=== PATIENT | male | born 1990 | race African-American/Black ===

== ENCOUNTER 2018-12-26 18:44 | Emergency (ER) | payer SELFPAY ==
[~2018-12-26] VITALS: Ht 170.2 cm; Wt 69.8 kg
[2018-12-26 18:57] VITALS: BP 152/88; PULSE 73; RESP 18; Ht 170.2 cm; Wt 69.8 kg
[2018-12-26] MEDS ORDERED: GUAI600T23 PO (20:18)
[2018-12-26] MEDS ORDERED: CETI10TA19 PO (20:27)
[2018-12-26] MEDS ORDERED: DEXAMETHASONE 10 MG/ML 1 ML INJ IM ONE (20:30)
--- NOTE | 2018-12-28 05:50 | ERD ---
ER Documentation Chief Complaint Chief Complaint shortness of breath x 6 days. lungs clear. "feels something stuck in my thr HPI History of Present Illness: 28-year-old male who denies a past medical history coming today with complaint of feeling like something is stuck in his throat. Patient denies cough. Patient reports postnasal drip-like activity. Patient reports nasal congestion. Patient reports he has been tilting his head back and inserting water into his nose to help with secretions/feeling that he has in his throat. At home pharmacological/nonpharmacological treatment for symptoms: Denies Denies social concerns; Denies recent foreign travel ROS All systems reviewed and are negative except as per history of present illness. Medications Home Meds Active Scripts Cetirizine Hcl* (Cetirizine Hcl*) 10 Mg Tablet, 10 MG PO DAILY for ALLERGIES/MUCUS, #30 TAB Take this medication every day to prevent mucus buildup from allergies. Prov:SUSAN BARONE NP 12/26/18 Guaifenesin (Guaifenesin) 600 Mg Tablet.sa, 600 MG PO BID for MUCUS for 7 Days, TAB Prov:SUSAN BARONE NP 12/26/18 Allergies Allergies: Coded Allergies: No Known Drug Allergies (Verified Allergy, Unknown, 12/26/18) PMhx/Soc History of Surgery: Yes (polyp removal) Anesthesia Reaction: No Hx Neurological Disorder: No Hx Respiratory Disorders: Yes (asthma during childhood) Hx Cardiac Disorders: No Hx Psychiatric Problems: No Hx Miscellaneous Medical Probl: No Hx Alcohol Use: No Hx Substance Use: Yes (weed per patient) Hx Tobacco Use: Yes Smoking Status: Former smoker FmHx Family History: No diabetes, No coronary disease Physical Exam Vitals Vital Signs Date Temp Pulse Resp B/P (MAP) Pulse Ox O2 O2 Flow FiO2 Time Delivery Rate 12/26/18 97.2 73 18 152/88 100 18:57 (109) Physical Exam Const: No acute distress Head: Atraumatic Eyes: Normal Conjunctiva ENT: Normal External Ears, nasal turbinates swollen. Postnasal drip drainage noted. Neck: Full range of motion. No meningismus. Resp: Clear to auscultation bilaterally Cardio: Regular rate and rhythm, no murmurs Abd: Soft, non tender, non distended. Normal bowel sounds Skin: No petechiae or rashes Back: No midline or flank tenderness Ext: No cyanosis, or edema Neur: Awake and alert Psych: Normal Mood and Affect Results 24 hrs Current Medications Medications Dose Sig/Michael Start Time Status Last (Trade) Ordered Route PRN Stop Time Admin Dose Reason Admin 10 mg ONCE ONCE 12/26/18 DC 12/26/18 Dexamethasone IM 20:30 12/26/18 20:28 (Decadron) 20:31 Procedures/MDM ED course includes a thorough examination and history. ED course includes nasal saline irrigation. Low suspicion for life-threatening medical emergency. Otherwise healthy patient presenting with constellation of symptoms likely representing uncomplicated allergic rhinitis/excessive mucus secretion as characterized by history, physical exam findings. Saline irrigation performed by myself. Patient tolerated well. 30 mL syringe use with NS to each nare x3. Patient reports that the feeling of something being in his throat has decreased significantly. Patient reassessment: Patient hemodynamically stable. No respiratory distress, otherwise relatively well appearing and nontoxic. Disposition given. Patient educated on diagnoses, prescriptions, follow-up care, return precautions. Strict return precautions given for worsening condition; questions answered discharge. Disposition for discharge with followup in 2 days with PCP/clinic. Departure Diagnosis: Primary Impression: Allergic rhinitis Allergic rhinitis trigger: unspecified Allergic rhinitis seasonality: unspecified Qualified Codes: J30.9 - Allergic rhinitis, unspecified Additional Impression: Excessive mucus secretion Condition: Stable Referrals: [facility] YOU HAVE RECEIVED A MEDICAL SCREENING EXAM AND THE RESULTS INDICATE THAT YOU DO NOT HAVE A CONDITION THAT REQUIRES URGENT TREATMENT IN THE EMERGENCY DEPARTMENT. FURTHER EVALUATION AND TREATMENT OF YOUR CONDITION CAN WAIT UNTIL YOU ARE SEEN IN YOUR DOCTORS OFFICE WITHIN THE NEXT 1-2 DAYS. IT IS YOUR RESPONSIBILITY TO MAKE AN APPOINTMENT FOR FOLOW-UP CARE. IF YOU HAVE A PRIMARY DOCTOR --you should call your primary doctor and schedule an appointment IF YOU DO NOT HAVE A PRIMARY DOCTOR YOU CAN CALL OUR PHYSICIAN REFERRAL HOTLINE AT IF YOU CAN NOT AFFORD TO SEE A PHYSICIAN YOU CAN CHOSE FROM THE FOLLOWING [facility] CLINICS [facility] [id number] [facility] [address] [facility] [facility] [address] [facility] [address] [facility] [address] [facility]. [facility] [address] [facility]. [facility] YOU HAVE RECEIVED A MEDICAL SCREENING EXAM AND THE RESULTS INDICATE THAT YOU DO NOT HAVE A CONDITION THAT REQUIRES URGENT TREATMENT IN THE EMERGENCY DEPARTMENT. FURTHER EVALUATION AND TREATMENT OF YOUR CONDITION CAN WAIT UNTIL YOU ARE SEEN IN YOUR DOCTORS OFFICE WITHIN THE NEXT 1-2 DAYS. IT IS YOUR RESPONSIBILITY TO MAKE AN APPOINTMENT FOR FOLOW-UP CARE. IF YOU HAVE A PRIMARY DOCTOR --you should call your primary doctor and schedule and appointment IF YOU DO NOT HAVE A PRIMARY DOCTOR YOU CAN CALL OUR PHYSICIAN REFERRAL HOTLINE AT . IF YOU CAN NOT AFFORD TO SEE A PHYSICIAN YOU CAN CHOSE FROM THE FOLLOWING [facility] INSTITUTIONS: [facility] [address] [place] [address] [facility] [address] [place] [address] [facility] [address] [place] [address] Additional Instructions: Thank you very much for allowing us to participate in your care. Your health and safety is our top priority at [facility]. It is important to read all discharge instructions and education provided in your discharge packet. *Do saline irrigation in the morning and at night for the next 7 days. After 1 week then you can do it 2-3 times a week to help with maintenance of sinus related drainage.* Call your primary care doctor TOMORROW for an appointment during the next 2-4 days and bring all the information and medications prescribed. Have prescriptions filled and follow precisely the directions on the label. If the symptoms get worse and your provider is unavailable, return to the Emergency Department immediately. SUSAN BARONE NP December 28, 2018 05:50
== END 2018-12-26 20:33 | disposition home or self-care (01) ==
LOC: FTE 18:44
DX: J30.9 Allergic rhinitis, unspecified (principal); J45.901 Unspecified asthma with (acute) exacerbation
CPT/HCPCS: 96372; 99284; J1100